=== PATIENT | male | born 1985 | race Caucasian/White ===

== ENCOUNTER 2017-06-06 21:17 | Emergency (ER) | payer MEDICAID, OTHER ==
--- NOTE | 2017-06-06 21:56 | ED PDOC ---
Arrival/HPI <Jordon Mata - Last Filed: 06/06/17 22:05> - General Historian: Patient <Mike Fuentes - Last Filed: 06/07/17 00:07> - General Chief Complaint: GI Problem Time Seen by Provider: 06/06/17 21:36 - History of Present Illness Narrative History of Present Illness (Text): 06/06/17 21:56 31 year old male, pmh including chronic diarrhea, nkda, complaining of chronic diarrhea over 9 months which he is currently follow up with his own pmd. Pt. stated that he missed the work tonight because of the diarrhea, never follow up with a GI as he didn't have time, no fever or chills, feels like his usual chronic diarrhea, no rash, no numbness or tingling, no palpitation, no other medical or psychological complaints. (Mike Fuentes) Past Medical History - Provider Review Nursing Documentation Reviewed: Yes - Infectious Disease Hx of Infectious Diseases: None - Tetanus Immunization Tetanus Immunization: Unknown - Past Medical History Past Medical History: No Previous - Psychiatric Hx Substance Use: No Other/Comment: The patient denies that but on his old record there are visits for depression, suicidal ideation and schizophrenia - Past Surgical History Past Surgical History: No Previous - Anesthesia Hx Anesthesia: No Hx Anesthesia Reactions: No Hx Malignant Hyperthermia: No - Suicidal Assessment Feels Threatened In Home Enviroment: No <Mike Fuentes - Last Filed: 06/07/17 00:07> Family/Social History - Physician Review Nursing Documentation Reviewed: Yes Family/Social History: Unknown Family HX Smoking Status: Unknown If Ever Smoked Hx Alcohol Use: Yes Hx Substance Use: No Hx Substance Use Treatment: No <Mike Fuentes - Last Filed: 06/07/17 00:07> Allergies/Home Meds <Jordon Mata - Last Filed: 06/06/17 22:05> <Mike Fuentes - Last Filed: 06/07/17 00:07> Allergies/Adverse Reactions: Allergies No Known Allergies Allergy (Verified 03/17/15 17:43) Review of Systems - Review of Systems Constitutional: absent: Fatigue, Fevers Eyes: absent: Vision Changes ENT: absent: Hearing Changes Respiratory: absent: SOB, Cough Cardiovascular: absent: Chest Pain Gastrointestinal: Abdominal Pain, Diarrhea. absent: Nausea, Vomiting Skin: absent: Rash, Pruritis <Mike Fuentes - Last Filed: 06/07/17 00:07> Physical Exam Vital Signs Reviewed: Yes Temperature: Afebrile Blood Pressure: Normal Pulse: Regular Respiratory Rate: Normal Appearance: Positive for: Well-Appearing, Non-Toxic, Comfortable Pain Distress: Mild Mental Status: Positive for: Alert and Oriented X 3 - Systems Exam Head: Present: Atraumatic, Normocephalic Pupils: Present: PERRL Extroacular Muscles: Present: EOMI Conjunctiva: Present: Normal Mouth: Present: Moist Mucous Membranes Neck: Present: Normal Range of Motion Respiratory/Chest: Present: Clear to Auscultation, Good Air Exchange. No: Respiratory Distress, Accessory Muscle Use Cardiovascular: Present: Regular Rate and Rhythm, Normal S1, S2. No: Murmurs Abdomen: Present: Normal Bowel Sounds. No: Tenderness, Distention, Peritoneal Signs, Rebound, Guarding Back: Present: Normal Inspection Upper Extremity: Present: Normal Inspection. No: Cyanosis, Edema Lower Extremity: Present: Normal Inspection. No: Edema Neurological: Present: GCS=15, CN II-XII Intact, Speech Normal Skin: Present: Warm, Dry, Normal Color. No: Rashes Psychiatric: Present: Alert, Oriented x 3, Normal Insight, Normal Concentration <Mike Fuentes - Last Filed: 06/07/17 00:07> Vital Signs Temp Pulse Resp BP Pulse Ox 06/06/17 23:45 80 18 128/79 99 06/06/17 21:40 99 F 88 16 137/86 98 Medical Decision Making <Jordon Mata - Last Filed: 06/06/17 22:05> - Lab Interpretations I have reviewed the lab results: Yes Interpretation: No clinic. lab abnormalty <Mike Fuentes - Last Filed: 06/07/17 00:07> ED Course and Treatment: 06/06/17 22:12 -labs -IVF/pepcid -Observe and reassess 06/06/17 23:19 -Labs are non-significant -Pain resolved, abdominal is soft with no tenderness or guarding, no diarrhea in the ER. -Pt. is crossing the leg, smiling and talking on the cellphone, will discharge home with outpatient GI follow up . -Discharge home with pepcid, follow up with your own pmd and GI within 2 days, return to the ER for any new or worsening signs or symptoms (Mike Fuentes) - Lab Interpretations Lab Results: 06/06/17 22:20 06/06/17 22:20 Lab Results 06/06/17 22:20: WBC 9.6 D, RBC 5.26, Hgb 14.5, Hct 43.5, MCV 82.7, MCH 27.6, MCHC 33.3, RDW 14.9 H, Plt Count 267, MPV 10.3, Gran % 70.9 H, Lymph % (Auto) 17.9 L, [place] % (Auto) 9.0 H, Eos % (Auto) 1.9, Baso % (Auto) 0.3, Gran # 6.81 H , Lymph # 1.7, [place] # 0.9 H, Eos # 0.2, Baso # 0.03 06/06/17 22:20: Sodium 140, Potassium 4.2, Chloride 103, Carbon Dioxide 27, Anion Gap 14, BUN 16, Creatinine 1.2, Est GFR ( Amer) > 60, Est GFR (Non- Af Amer) > 60, Random Glucose 105, Calcium 9.1, Total Bilirubin 0.5, AST 33, ALT 72 H, Alkaline Phosphatase 60, Total Protein 6.8, Albumin 4.4, Globulin 2.4 , Albumin/Globulin Ratio 1.8, Lipase 84 - Medication Orders Current Medication Orders: Discontinued Medications Famotidine (Pepcid) 20 mg IVP STAT STA Stop: 06/06/17 22:10 Last Admin: 06/06/17 22:41 Dose: 20 mg IVP Administration Document 06/06/17 22:41 EQ (Rec: 06/06/17 22:41 EQ [email or web address]) Charges for Administration # of IVP Administrations 1 Sodium Chloride (Sodium Chloride 0.9%) 1,000 mls @ 999 mls/hr IV .Q1H1M STA Stop: 06/06/17 23:09 Last Admin: 06/06/17 22:41 Dose: 999 mls/hr eMAR Start Stop Document 06/06/17 22:41 EQ (Rec: 06/06/17 22:45 EQ [email or web address]) Intravenous Solution Start Date 06/06/17 Start Time 22:41 - PA / [employer]ESSION[employer] / Resident Statement / has reviewed & agrees with the documentation as recorded. 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 <Mike Fuentes - Last Filed: 06/07/17 00:07> Disposition/Present on Arrival <Jordon Mata - Last Filed: 06/06/17 22:05> - Present on Arrival Any Indicators Present on Arrival: No History of DVT/PE: No History of Uncontrolled Diabetes: No Urinary Catheter: No History of Decub. Ulcer: No History Surgical Site Infection Following: None - Disposition Have Diagnosis and Disposition been Completed?: Yes Disposition Time: 23:20 Patient Plan: Discharge <Mike Fuentes - Last Filed: 06/07/17 00:07> - Disposition Diagnosis: Chronic diarrhea Disposition: HOME/ ROUTINE Condition: IMPROVED Additional Instructions: -Discharge home with pepcid, follow up with your own pmd and GI within 2 days, return to the ER for any new or worsening signs or symptoms Prescriptions: Famotidine [Pepcid] 20 mg PO BID PRN #20 tab PRN Reason: Other Referrals: Hernandez Breaux DO [Staff Provider] - Follow up with primary Forms: [employer] (Taiwanese), WORK NOTE
[2017-06-06 21:58] VITALS: TEMP 99
[2017-06-06] MEDS ORDERED: Sodium Chloride 0.9% 1,000 ML IV STA (22:09)
[2017-06-06 22:50] LABS: BASO # 0.03 K/mm3 (0.0-2.0); BASO % 0.3 % (0.0-3.0); EOS # 0.2 (0.0-0.7); EOS % 1.9 % (1.5-5.0); GRAN # 6.81 (1.4-6.5); GRAN % 70.9 % (50.0-68.0); HEMATOCRIT 43.5 % (42.0-52.0); LYMPH # 1.7 (1.2-3.4); LYMPH % 17.9 % (22.0-35.0); MEAN CELL VOLUME 82.7 fl (80.0-105.0); MEAN CORPUSCULAR HEMOGLOBIN 27.6 pg (25.0-35.0); MEAN CORPUSCULAR HGB CONC 33.3 g/dl (31.0-37.0); MEAN PLATELET VOLUME 10.3 fl (7.0-11.0); MONO # 0.9 (0.1-0.6); RED CELL DISTRIBUTION WIDTH 14.9 % (11.5-14.5); WHITE BLOOD COUNT 9.6 10^3/ul (4.5-11.0)
[2017-06-06 22:59] LABS: ALB/GLOB RATIO 1.8 (1.1-1.8); ALKALINE PHOSPHATASE 60 U/L (38-126); ALT/SGPT 72 U/L (7-56); AST/SGOT 33 U/L (17-59); BILIRUBIN,TOTAL 0.5 mg/dL (0.2-1.3); BLOOD UREA NITROGEN 16 mg/dL (7-21); CALCIUM 9.1 mg/dL (8.4-10.5); CARBON DIOXIDE 27 mmol/L (21-33); CHLORIDE 103 mmol/L (98-107); GFR AFRICAN-AMERICAN > 60; GLUCOSE,RANDOM 105 mg/dL (70-110); LIPASE 84 U/L (23-300); POTASSIUM 4.2 mmol/L (3.6-5.0); SODIUM 140 mmol/L (132-148); TOTAL PROTEIN 6.8 g/dL (5.8-8.3)
[2017-06-06 23:52] VITALS: BP 128/79; PULSE 80; RESP 18; O2SAT 99
== END 2017-06-06 23:45 | disposition home or self-care (01) ==
LOC: ED 21:17
DX: K52.9 Noninfective gastroenteritis and colitis, unspecified (principal)
CPT/HCPCS: 80053; 83690; 85025; 96374; 99283; J7040

== ENCOUNTER 2017-12-10 00:02 | Emergency (ER) | payer MEDICAID, OTHER ==
[2017-12-10 00:35] VITALS: BMI 28.5
[2017-12-10 00:48] VITALS: TEMP 98.7
--- NOTE | 2017-12-10 00:54 | ED PDOC ---
Arrival/HPI - General Chief Complaint: Psychiatric Evaluation Time Seen by Provider: 12/10/17 00:13 Historian: Patient - History of Present Illness Narrative History of Present Illness (Text): 12/10/17 00:54 Roni Anderson is a 32 year old male, whose past medical history includes depression, who presents to the Emergency department requesting a place to stay. Patient states he was on his way to a assisted when he was picked by EMS. Patient states he ran out of his Zyprexa and is requesting a dose of Zyprexa until he can see his PMD and place to stay for tonight. Patient denies any suicidal ideation, homicidal ideation, fever, chills, chest pain, shortness of breath, nausea, vomiting, diarrhea, urinary symptoms, back pain, neck pain, headache, dizziness, or any other complaints. Symptom Onset: Gradual Symptom Course: Unchanged Activities at Onset: Light Context: Home Past Medical History - Provider Review Nursing Documentation Reviewed: Yes - Infectious Disease Hx of Infectious Diseases: None - Tetanus Immunization Tetanus Immunization: Unknown - Past Medical History Past Medical History: No Previous - Cardiac Other/Comment: Patient denies - Gastrointestinal Other/Comment: Patient denies - Genitourinary/Gynecological Other/Comment: Patient denies - Psychiatric Hx Substance Use: No Other/Comment: The patient denies that but on his old record there are visits for depression, suicidal ideation and schizophrenia - Past Surgical History Past Surgical History: No Previous - Anesthesia Hx Anesthesia: No Hx Anesthesia Reactions: No Hx Malignant Hyperthermia: No - Suicidal Assessment Feels Threatened In Home Enviroment: No Family/Social History - Physician Review Nursing Documentation Reviewed: Yes Family/Social History: Unknown Family HX Smoking Status: Never Smoked Hx Alcohol Use: Yes Hx Substance Use: No Hx Substance Use Treatment: No Allergies/Home Meds Allergies/Adverse Reactions: Allergies No Known Allergies Allergy (Verified 12/10/17 00:36) Home Medications: Home Meds Medication Instructions Recorded Confirmed No Known Home Med 09/08/17 12/10/17 Review of Systems - Physician Review All systems were reviewed & negative as marked: Yes - Review of Systems Constitutional: Normal. absent: Fevers Eyes: Normal ENT: Normal Respiratory: Normal. absent: SOB, Cough Cardiovascular: Normal. absent: Chest Pain Gastrointestinal: Normal. absent: Abdominal Pain, Diarrhea, Nausea, Vomiting Genitourinary Male: Normal. absent: Dysuria, Frequency, Hematuria, Urinary Output Changes Musculoskeletal: Normal. absent: Back Pain, Neck Pain Skin: Normal. absent: Rash Neurological: Normal. absent: Headache, Dizziness Endocrine: Normal Hemo/Lymphatic: Normal Psychiatric: Normal Physical Exam Vital Signs Reviewed: Yes Vital Signs Temp Pulse Resp BP Pulse Ox 12/10/17 05:50 90 19 140/73 99 12/10/17 00:46 98.7 F 85 20 97 Temperature: Afebrile Blood Pressure: Normal Pulse: Regular Respiratory Rate: Normal Appearance: Positive for: Well-Appearing, Non-Toxic, Comfortable Pain Distress: None Mental Status: Positive for: Alert and Oriented X 3 - Systems Exam Head: Present: Atraumatic, Normocephalic Pupils: Present: PERRL Extroacular Muscles: Present: EOMI Conjunctiva: Present: Normal Mouth: Present: Moist Mucous Membranes Neck: Present: Normal Range of Motion Respiratory/Chest: Present: Clear to Auscultation, Good Air Exchange. No: Respiratory Distress, Accessory Muscle Use Cardiovascular: Present: Regular Rate and Rhythm, Normal S1, S2. No: Murmurs Abdomen: No: Tenderness, Distention, Peritoneal Signs Back: Present: Normal Inspection Upper Extremity: Present: Normal Inspection. No: Cyanosis, Edema Lower Extremity: Present: Normal Inspection. No: Edema Neurological: Present: GCS=15, CN II-XII Intact, Speech Normal Skin: Present: Warm, Dry, Normal Color. No: Rashes Psychiatric: Present: Alert, Oriented x 3, Normal Insight, Normal Concentration Medical Decision Making ED Course and Treatment: 12/10/17 00:54 Impression: 32 year old male requesting a place to stay and a dose of Zyprexa. Plan: -- Zyprexa -- Reassess and disposition Progress Notes: - Medication Orders Current Medication Orders: Discontinued Medications Olanzapine (Zyprexa) 15 mg PO STAT STA PRN Reason: Protocol Stop: 12/10/17 00:55 Last Admin: 12/10/17 02:31 Dose: 15 mg - Scribe Statement The provider has reviewed the documentation as recorded by the Derrick Gallardo Provider Scribe Attestation: All medical record entries made by the Scribe were at my direction and personally dictated by me. I have reviewed the chart and agree that the record accurately reflects my personal performance of the history, physical exam, medical decision making, and the department course for this patient. I have also personally directed, reviewed, and agree with the discharge instructions and disposition. Disposition/Present on Arrival - Present on Arrival Any Indicators Present on Arrival: No History of DVT/PE: No History of Uncontrolled Diabetes: No Urinary Catheter: No History of Decub. Ulcer: No History Surgical Site Infection Following: None - Disposition Have Diagnosis and Disposition been Completed?: Yes Diagnosis: General medical exam, Psychiatric care Disposition: HOME/ ROUTINE Disposition Time: 06:35 Condition: GOOD Discharge Instructions (ExitCare): Yearly Physical for Adults Referrals: [facility] [[facility]] - Follow up with primary PCP,NO [Primary Care Provider] - Follow up with primary Forms: [employer] (Panamanian)
[2017-12-10 05:51] VITALS: BP 140/73; PULSE 90; RESP 19; O2SAT 99
== END 2017-12-10 05:57 | disposition home or self-care (01) ==
LOC: ED 00:02
DX: Z00.8 Encounter for other general examination (principal); F32.9 Major depressive disorder, single episode, unspecified